=== PATIENT | female | born 1945 | race Caucasian/White ===

== ENCOUNTER 2022-06-30 00:35 | Observation (INO) | payer MEDICARE, OTHER ==
[~2022-06-30] VITALS: Ht 167.6 cm; Wt 85.9 kg
[2022-06-30] VITALS (16 sets, daily range): BP systolic 103–205; BP diastolic 57–128
[2022-06-30 06:23] LABS: URINE BILIRUBIN - DIPSTICK NEGATIVE (NEGATIVE); URINE BLOOD DIPSTICK NEGATIVE (NEGATIVE); URINE COLOR YELLOW; URINE GLUCOSE - DIPSTICK NEGATIVE (NEGATIVE); URINE KETONE NEGATIVE (NEGATIVE); URINE LEUK ESTERASE NEGATIVE (NEGATIVE); URINE PROTEIN - DIPSTICK NEGATIVE (NEG-TRACE); URINE UROBILINOGEN - DIPSTICK 0.2 E.U./dL (0.2)
[2022-06-30 06:35] LABS: URINE NITRITE - DIPSTICK NEGATIVE (Negative)
[2022-06-30 08:49] LABS: HEMATOCRIT 35.6 % (37.0-47.0); HEMOGLOBIN 11.4 g/dl (12.0-16.0); IMMATURE GRANULOCYTES 1.7 % (0.0-5.0); MEAN CELL VOLUME 98.3 fL CALC (80.0-100.0); MEAN CORPUSCULAR HGB 31.5 pG CALC (26.0-32.0); NEUT# 4.72 thou/uL (2.00-7.15); RED BLOOD COUNT 3.62 mill/uL (4.20-5.60); RED CELL DISTRI WIDTH 16.1 % (11.5-15.5)
[2022-06-30 08:58] LABS: ALBUMIN 3.8 g/dL (3.2-5.0); ALKALINE PHOSPHATASE 120 u/l (38-126); ANION GAP 12 (6-22 (CALC)); BILIRUBIN, TOTAL 0.8 mg/dL (0.0-1.4); BUN 36 mg/dL (8-23); BUN/CREATININE RATIO 36 (12-20 (CALC)); CARBON DIOXIDE 23 mmol/l (22-30); CHLORIDE 107 mmol/l (95-108); GFR FOR AFR.AMER. > 60 ML/MIN (>=60 (CALC)); GFR OTHER RACES 54 ML/MIN (>=60 (CALC)); POTASSIUM 4.2 mmol/l (3.5-5.1); SGOT/AST 25 u/l (9-36); SODIUM 139 mmol/l (137-146); TOTAL PROTEIN 6.4 g/dL (6.3-8.2)
--- NOTE | 2022-06-30 10:33 | NUR ---
PT ASKED ABOUT IF DAUGHTER CAN HAVE INFORMATION ABOUT HER STAY IN [facility]. PT GAVE NURSE DAUGHTER'S PHONE NUMBER TO CONTACT HER DAUGHTER. PT ALSO GIVEN BEDPAN TO URINATE. PT TOLERATED WELL AND BEDPAN WAS REMOVED FROM PT.
--- NOTE | 2022-06-30 10:47 | NUR ---
patient states she canot get out of bed due to back pain and needs to void. pt requests to have indwelling park catheter placed. ER notified.
--- NOTE | 2022-06-30 12:30 | NUR ---
park catheter size 16 armenian. 250 ml unie clean non turbid in bag.
[2022-06-30] MEDS ORDERED: FAMOTIDINE20 M1 PO (14:38)
[2022-06-30] MEDS ORDERED: DILTIAZEM90 M1 PO (14:39)
[2022-06-30] MEDS ORDERED: LISINOPRIL5 MG PO (14:41)
[2022-06-30] MEDS ORDERED: GABAPENTIN100 MG PO (14:42)
[2022-06-30] MEDS ORDERED: ARAVA20 MG PO (14:42)
[2022-06-30] MEDS ORDERED: REPATHA140 MG/ML (14:44)
[2022-06-30] MEDS ORDERED: DILT-XR180 MG PO (16:01)
[2022-06-30] MEDS ORDERED: GABAPENTIN600 MG PO (16:05)
[2022-06-30] MEDS ORDERED: LORTAB 5/3255 MG PO (16:07)
--- NOTE | 2022-06-30 17:57 | NUR ---
77 year old female received today from the ED for intractable back pain , on admission to the med surge unit, Pt AOx4 C/O lower back pain 4 out of 10., Bilateral breasts qwith large bruises ,Pt stated that the the bruises are couple weeks old from a fall , VSS , catheter park in place and draining . Fall precaution initiated and ongoing, continue monitoring Pt .
[2022-07-01 03:47] VITALS: BP 136/69
[2022-07-01 06:39] VITALS: BP 145/71
[2022-07-01 06:44] VITALS: BP 147/73
[2022-07-01 11:57] VITALS: BP 132/64
[2022-07-01 17:01] VITALS: BP 142/74
[2022-07-01 18:53] VITALS: BP 149/65
[2022-07-02 04:19] VITALS: BP 149/70
[2022-07-02 06:30] VITALS: BP 159/96
[2022-07-02 15:30] VITALS: BP 132/84
[2022-07-02 16:00] VITALS: BP 132/84
--- NOTE | 2022-07-02 18:43 | NUR ---
CALLED SATHISH SARGENT SPOKE TO CHRISTINA FOR TRANSPORT TO [facility] ROOM NUMBER [id number] AND REPORT NUMBER [phone]. SATHISH SARGENT WILL BE HERE IN APPROXIMATELY 30 MINUTES.
[2022-07-02 18:47] VITALS: BP 149/81
== END 2022-07-02 19:25 | disposition short-term general hospital (02) ==
LOC: ED 00:35 → ED-I 01:09 → ED 01:09 → ED-I 09:00 → ED 10:46 → MS2 10:47
PROVIDERS: Emergency Medicine; ADMIT Internal Medicine; ATTEND Internal Medicine
PROC: 0T9B70Z Drainage of Bladder with Drainage Device, Via Natural or Artificial Opening (ICD-10-PCS; principal; 2022-06-30)
DX: S32.031A Stable burst fracture of third lumbar vertebra, initial encounter for closed fracture (principal); S32.050D Wedge compression fracture of fifth lumbar vertebra, subsequent encounter for fracture with routine healing; I10 Essential (primary) hypertension; L40.50 Arthropathic psoriasis, unspecified; W19.XXXA Unspecified fall, initial encounter; X58.XXXD Exposure to other specified factors, subsequent encounter; Z96.82 Presence of neurostimulator; Z20.822 Contact with and (suspected) exposure to COVID-19
CPT/HCPCS: J1650